=== PATIENT | female | born 1995 | race Caucasian/White ===

== ENCOUNTER 2016-06-25 22:59 | Inpatient (IN) | payer OTHER ==
[~2016-06-25] VITALS: Ht 167.6 cm; Wt 74.8 kg
[2016-06-25 23:57] LABS: HEMOGLOBIN 11.1 gm/dl (12.3-15.3); RED BLOOD COUNT 4.27 M/UL (4.00-5.10); WHITE BLOOD COUNT 19.9 K/UL (4.5-11.0)
[2016-06-26 07:26] LABS: RED BLOOD COUNT 3.82 M/UL (4.00-5.10); WHITE BLOOD COUNT 13.8 K/UL (4.5-11.0)
[2016-06-26 07:54] LABS: BUN/CREATININE RATIO 13 (0-10)
[2016-06-26 14:16] LABS: ACINETOBACTER BAUMANNII Not Detected (Negative); CANDIDA ALBICANS Not Detected (Negative); CANDIDA KRUSEI Not Detected (Negative); CANDIDA TROPICALIS Not Detected (Negative); ENTEROCOCCUS Not Detected (Negative); HAEMOPHILUS INFLUENZAE Not Detected (Negative); KLEBSIELLA OXYTOCA Not Detected (Negative); KLEBSIELLA PNEUMONIAE Not Detected (Negative); KPC-CARBAPENEM-RESISTANCE GENE Not Detected (Negative); PROTEUS Not Detected (Negative); PSEUDOMONAS AERUGINOSA Not Detected (Negative); SERRATIA MARCESANS Not Detected (Negative); STAPHYLOCOCCUS Not Detected (Negative); STAPHYLOCOCCUS AUREUS Not Detected (Negative); STREP AGALACTIAE (GROUP B) Not Detected (Negative); STREP PYOGENES (GROUP A) Not Detected (Negative); STREPTOCOCCUS Not Detected (Negative); mecA (METHICILLIN RESIST GENE Not Detected (Negative); vanA/B (VANCOMYCIN RESIST GENE Not Detected (Negative)
[2016-06-26 15:35] LABS: ESCHERICHIA COLI DETECTED (Negative)
[2016-06-27 05:41] LABS: HEMOGLOBIN 9.1 gm/dl (12.3-15.3); RED BLOOD COUNT 3.57 M/UL (4.00-5.10); WHITE BLOOD COUNT 11.3 K/UL (4.5-11.0)
[2016-06-27 06:05] LABS: BUN/CREATININE RATIO 8 (0-10)
[2016-06-28 05:42] LABS: HEMOGLOBIN 9.4 gm/dl (12.3-15.3); RED BLOOD COUNT 3.66 M/UL (4.00-5.10)
[2016-06-28 05:43] LABS: WHITE BLOOD COUNT 6.8 K/UL (4.5-11.0)
[2016-06-28 05:58] LABS: BUN/CREATININE RATIO 8 (0-10)
[2016-06-29 05:51] LABS: RED BLOOD COUNT 3.81 M/UL (4.00-5.10); WHITE BLOOD COUNT 5.3 K/UL (4.5-11.0)
[2016-06-29 06:07] LABS: BUN/CREATININE RATIO 10 (0-10)
[2016-07-01 05:19] LABS: HEMOGLOBIN 10.5 gm/dl (12.3-15.3); RED BLOOD COUNT 3.97 M/UL (4.00-5.10); WHITE BLOOD COUNT 8.4 K/UL (4.5-11.0)
[2016-07-01 07:31] LABS: BUN/CREATININE RATIO 13 (0-10)
[2016-07-02 05:08] LABS: BUN/CREATININE RATIO 13 (0-10)
[2016-07-02] MEDS ORDERED: ZOFRAN4 MG PO (10:41)
[2016-07-02] MEDS ORDERED: TYLENOL 325MG325 MG PO (10:41)
[2016-07-02] MEDS ORDERED: ULTRAM50 MG PO (10:42)
[2016-07-02] MEDS ORDERED: CEFUROXIME500 MG PO (10:43)
[2016-07-02] MEDS ORDERED: IRON325 M1 PO (10:44)
[2016-07-02] MEDS ORDERED: THERAGRAN TAB1 EA PO (10:44)
== END 2016-07-02 11:49 | disposition home or self-care (01) | DRG 872 ==
LOC: ER1 22:59 → ZEROF 06-26 02:45 → MED SURG 4 06-26 02:45
PROVIDERS: Internal Medicine Infectious Disease; Physician Assistant; Student in an Organized Health Care Education/Training Program; ADMIT Internal Medicine
DX: A41.51 Sepsis due to Escherichia coli [E. coli] (principal); N10 Acute pyelonephritis; N17.9 Acute kidney failure, unspecified; E87.2 Acidosis; E87.1 Hypo-osmolality and hyponatremia; R65.20 Severe sepsis without septic shock; E86.0 Dehydration; E87.6 Hypokalemia; D50.9 Iron deficiency anemia, unspecified; E83.42 Hypomagnesemia; R19.7 Diarrhea, unspecified; N89.8 Other specified noninflammatory disorders of vagina; E83.39 Other disorders of phosphorus metabolism; R11.2 Nausea with vomiting, unspecified; Z97.5 Presence of (intrauterine) contraceptive device; Z98.890 Other specified postprocedural states; Z80.0 Family history of malignant neoplasm of digestive organs
CPT/HCPCS: 36415; 51701; 71010; 76830; 80048; 80053; 81001; 82607; 82728; 82746; 83540; 83550; 83605; 83690; 83735; 84100; 84443; 84703; 85025; 85027; 85610; 85730; 87040; 87077; 87086; 87150; 87186; 87210; 96361; 96365; 96367; 96368; 96375; 96376; 99285; J0696; J1650; J2270; J2405; J2550; J3370; J7030; J7050; J7120; Q9962